=== PATIENT | female | born 1960 | race Caucasian/White ===

== ENCOUNTER 2018-10-09 11:25 | Day surgery (SDC) | payer OTHER ==
[~2018-10-09 11:25] MED LIST: Lactated Ringers 1,000 ML IV SCH; Sodium Chloride 0.9% 10 ML Syringe FLUSH PRN; Sodium Chloride 0.9% 2.5 ML Syringe FLUSH PRN
--- NOTE | 2018-10-09 11:56 | PCM.PREANE ---
Preanesthetic Assessment - Anesthesia/Transfusion/Family Hx Anesthesia History: No Prior Anesthesia Family History of Anesthesia Reaction: No Transfusion History: No Prior Transfusion(s) - Review of Systems General: No Symptoms Pulmonary: No Symptoms Cardiovascular: No Symptoms Gastrointestinal: No Symptoms Neurological: No Symptoms Other: Reports: None - Physical Assessment NPO Status Date: 10/08/18 Height: 5 ft 2 in Weight: 66.224 kg ASA Class: 2 Mental Status: Alert & Oriented x3 Airway Class: Mallampati = 1 Dentition: Reports: Normal Dentition ROM/Head Extension: Full Lungs: Clear to Auscultation, Normal Respiratory Effort Cardiovascular: Regular Rate, Regular Rhythm - Allergies Allergies/Adverse Reactions: Allergies Allergy/AdvReac Type Severity Reaction Status Date / Time Penicillins Allergy Anaphylactic Verified 10/06/18 09:10 Shock prochlorperazine Allergy "paradoxal Verified 10/06/18 09:10 [From Compazine] spasms" - Blood Blood Available: No - Anesthesia Plan Pre-Op Medication Ordered: None - Acknowledgements Anesthesia Type Planned: General Anesthesia, MAC Pt an Appropriate Candidate for the Planned Anesthesia: Yes Alternatives and Risks of Anesthesia Discussed w Pt/Guardian: Yes Pt/Guardian Understands and Agrees with Anesthesia Plan: Yes Additional Comments: PMH: thyroid replacement, hld PLAN: mac/tiva PreAnesthesia Questionnaire Other HEENT History: dental implant, wears glasses/contacts Cardiovascular History: Reports: High Cholesterol Endocrine/Metabolic History: Reports: Hypothyroidism - Past Surgical History Head Surgeries/Procedures: Reports: None - SUBSTANCE USE Smoking Status *Q: Former Smoker Tobacco Use Within Last Twelve Months: No Recreational Drug Use History: No - HOME MEDS Home Medications: Home Meds Calcium Carbonate/Vitamin D3 [Calcium 500 + Vit D 400] 1 tab PO DAILY 10/06/18 [ History] Flaxseed Oil 1,000 mg PO DAILY 10/06/18 [History] Levothyroxine Sodium [Synthroid] 12.5 mcg PO DAILY 10/06/18 [History] Niacin 100 mg PO DAILY 10/06/18 [History] Wellington-3/DHA/Epa/Fish Oil [Wellington-3 Fish Oil 1,000 MG Sfgl] 1,000 mg PO DAILY [History] Oxybutynin Chloride 5 mg PO DAILY 10/06/18 [History] Psyllium Husk/Aspartame [Metamucil Fiber Singles Packet] 1 dose PO ASDIRECTED [History] Simvastatin 5 mg PO DAILY 10/06/18 [History] - CURRENT (IN HOUSE) MEDS Current Meds: Current Medications Lactated Ringer's (Ringers, Lactated) 1,000 mls @ 125 mls/hr IV ASDIRECTED MAGGIE Sodium Chloride (Saline Flush) 10 ml FLUSH ASDIRECTED PRN PRN Reason: Keep Vein Open Sodium Chloride (Saline Flush) 2.5 ml FLUSH ASDIRECTED PRN PRN Reason: Keep Vein Open Sodium Chloride (Saline Flush) 10 ml FLUSH ASDIRECTED PRN PRN Reason: Keep Vein Open Sodium Chloride (Saline Flush) 2.5 ml FLUSH ASDIRECTED PRN PRN Reason: Keep Vein Open
[2018-10-09] MEDS ORDERED: Propofol 200 MG/20 ML SDV ONE (11:59)
[2018-10-09] MEDS ORDERED: fentaNYL 100 MCG/2 ML SDV ONE (12:31)
--- NOTE | 2018-10-09 13:02 | PCM48HPAN ---
Post Anesthesia Note - EVALUATION WITHIN 48HRS OF ANESTHETIC Vital Signs in Normal Range: Yes Patient Participated in Evaluation: Yes Respiratory Function Stable: Yes Airway Patent: Yes Cardiovascular Function Stable: Yes Hydration Status Stable: Yes Pain Control Satisfactory: Yes Nausea and Vomiting Control Satisfactory: Yes Mental Status Recovered: Yes Resp Rate: 12
--- NOTE | 2018-10-09 13:02 | PCM.POSTAN ---
POST ANESTHESIA ASSESSMENT - MENTAL STATUS Mental Status: Alert, Oriented - RESPIRATORY Respiratory Status: Respiratory Rate WNL, Airway Patent, O2 Saturation Stable - CARDIOVASCULAR CV Status: Pulse Rate WNL, Blood Pressure Stable - GASTROINTESTINAL GI Status: No Symptoms - POST OP HYDRATION Hydration Status: Adequate & Stable
--- NOTE | 2018-10-09 13:13 | PCM.OPNOTE ---
- General Post-Op/Procedure Note Date of Surgery/Procedure: 10/09/18 Operative Procedure(s): Screening colonoscopy Findings: Grade 3 hemorrhoids Pre Op Diagnosis: Colonoscopy Post-Op Diagnosis: Grade 3 hemorrhoids Anesthesia Technique: MAC Primary Surgeon: Marguerite Reno Condition: Good Free Text/Narrative:: Intake & Output 10/08/18 10/09/18 10/09/18 22:59 06:59 14:59 Intake Total 500 Balance 500
--- NOTE | 2018-10-09 14:00 | OR ---
SURGEON: DUSTIN ROSENBERG MD DATE OF PROCEDURE: 10/09/2018 PREOPERATIVE DIAGNOSIS: Screening colonoscopy. POSTOPERATIVE DIAGNOSIS: Grade 3 hemorrhoids. PROCEDURE PERFORMED: Screening colonoscopy. ANESTHESIA: MAC. INSTRUMENT USED: Olympus colonoscope. EXTENT OF EXAM: To the cecum. PREPARATION: Good. LIMITATIONS: None. INDICATIONS FOR EXAMINATION: The patient presents for a screening colonoscopy. She and I discussed the procedure, expected perioperative course, and risks including bleeding, infection, damage to surrounding structures including perforation. The patient verbalized understanding and wishes to proceed. PROCEDURE IN DETAIL: The patient was brought into the endoscopy suite and placed in left lateral decubitus position. A time-out was completed verifying the patient's name, age, date of , allergies, and procedure to be performed. Monitored anesthesia care was induced and continuous oxygen was provided via nasal cannula throughout the procedure. After adequate sedation was achieved, a digital rectal exam was performed. This exam revealed irritated grade 3 hemorrhoids with stigmata of recent bleeding. A well lubricated colonoscope was inserted into the rectum and advanced under direct visualization to the level of cecum. The cecum was identified by both visual and anatomic landmarks. A photograph was taken of the cecal cap as well as with the scope retroflexed within the cecum. The scope was then straightened out and fully withdrawn while examining the color, texture, anatomy, and integrity of the mucosa from cecum to the anal canal. The patient was found to have normal appearing colon. The scope was brought into the rectum and retroflexed to allow visualization of the anal canal opening. Again, I noted enlarged internal hemorrhoids that appeared irritated. A photograph of this was taken. The scope was straightened out and fully withdrawn. The cecum to anus time was 7 minutes. The patient tolerated the procedure well and taken to PACU in stable condition. ENDOSCOPIC DIAGNOSIS: Grade 3 hemorrhoids. RECOMMENDATIONS: I visited with the patient in the postoperative care area. She is well aware that she has hemorrhoids and states that these are irritated after the prep. She knows how to manage it conservatively and would like to continue to do so. She can follow up in 10 years for repeat colonoscopy or should any issues arise. RIVER DONNELLY /[id number]
== END 2018-10-09 13:35 | disposition home or self-care (01) ==
LOC: MW.SDS 11:25
PROVIDERS: ATTEND Surgery
DX: Z12.11 Encounter for screening for malignant neoplasm of colon (principal); K64.2 Third degree hemorrhoids; E78.00 Pure hypercholesterolemia, unspecified; E03.9 Hypothyroidism, unspecified; Z87.891 Personal history of nicotine dependence; Z79.890 Hormone replacement therapy; Z79.899 Other long term (current) drug therapy; Z88.0 Allergy status to penicillin; Z88.8 Allergy status to other drugs, medicaments and biological substances
CPT/HCPCS: 45378; J2001; J2704; J3010; J7120